=== PATIENT | male | born 1985 | race Caucasian/White ===

== ENCOUNTER 2022-06-20 19:10 | Emergency (ER) | payer MEDICAID, SELFPAY ==
[2022-06-20 20:38] VITALS: BP 121/76; PULSE 86; RESP 16; TEMP 36.7; O2SAT 98; BMI 36.0
[2022-06-20 21:24] LABS: Influenza A PCR NEGATIVE (Negative); Influenza B PCR NEGATIVE (Negative); Resp Syncy Virus RNA Qual PCR NEGATIVE (Negative); SARS COV2 PCR INHOUSE POSITIVE (Negative)
== END 2022-06-20 22:32 | disposition left against medical advice (07) ==
PROVIDERS: Emergency Provider Emergency Medicine
DX: U07.1 COVID-19 (principal)
CPT/HCPCS: 0241U; 99281; 99283